=== PATIENT | male | born 1975 | race Caucasian/White ===

== ENCOUNTER 2018-08-04 08:53 | Emergency (ER) | payer MEDICAID ==
[~2018-08-04] VITALS: Ht 190.5 cm; Wt 90.0 kg
[2018-08-04 08:54] VITALS: BP 135/86
[2018-08-04] MEDS ORDERED: AMOX-580 PO (09:54)
== END 2018-08-04 10:01 | disposition home or self-care (01) ==
LOC: ER 08:54
DX: J02.0 Streptococcal pharyngitis (principal); Z79.2 Long term (current) use of antibiotics
CPT/HCPCS: 87880; 99283